=== PATIENT | female | born 1960 | race Caucasian/White ===

== ENCOUNTER 2020-02-01 18:15 | Emergency (ER) | payer OTHER, MEDICAID, SELFPAY ==
[2020-02-01 18:20] VITALS: BP 191/93; PULSE 87; RESP 14; TEMP 36.3; O2SAT 100; BMI 32.8
--- NOTE | 2020-02-01 18:25 | ED.WEAKNESS ---
HPI - Weakness General Chief complaint: Weakness Stated complaint: Not Felling Well, Been In Bed 4 Days Time Seen by Provider: 02/01/20 18:20 Source: patient and family Mode of arrival: Ambulatory Limitations: no limitations History of Present Illness HPI Narrative: 59-year-old female smoker with history of hypertension presents with a family member the chief complaint of 4 days of feeling poorly. She has had subjective fever and chills and increasing severity of cough with occasional sputum production. She denies any headache or blurred vision. She has had no runny nose, sneezing or sore throat. She denies any vomiting but has been a bit nauseated. She has not been drinking much in the way of fluids but denies any dysuria, frequency or urgency. She denies any medication change. She has not been exposed to anybody known to be positive for coronavirus. MD Complaint: generalized weakness Onset (ago): day(s) Duration: constant Location: generalized Migration: none Severity: moderate Relieving factors: none Exacerbating factors: none Related Data Previous Rx's Medication Instructions Recorded doxycycline hyclate 100 mg PO BID #20 tab 02/01/20 Allergies Allergy/AdvReac Type Severity Reaction Status Date / Time No Known Drug Allergies Allergy Verified 02/01/20 18:23 Review of Systems Constitutional Constitutional: Reports chills, Denies fatigue, Reports fever(s), Denies frequent falls, Denies lethargy and Reports weakness Eyes Eyes: Denies change in vision, Denies eye discharge, Denies irritation and Denies loss of vision ENT Ears, Nose, Mouth, and Throat: Denies change in voice, Denies dizziness, Denies neck pain, Denies sore throat and Denies throat swelling Cardiovascular Cardiovascular: Denies chest pain, Denies irregular heart rhythm, Denies lightheadedness, Denies palpitations, Denies dyspnea, Denies dyspnea on exertion and Denies orthopnea Respiratory Respiratory: Reports cough, Denies dyspnea, Denies dyspnea on exertion and Denies wheezing Gastrointestinal Gastrointestinal: Denies abdominal pain, Denies change in bowel habits, Denies diarrhea, Denies nausea and Denies vomiting Musculoskeletal Musculoskeletal: Denies neck pain and Denies numbness Integumentary/Breasts Skin/Breast: Denies pruritus, Denies erythema, Denies rash and Denies wounds Neurologic Neurologic: Denies behavioral changes, Denies confusion, Denies dizziness, Denies frequent falls, Denies loss of vision, Denies numbness and Reports weakness Psychiatric Psychiatric: Denies anxiety, Denies behavioral changes, Denies confusion, Denies depression, Denies homicidal ideation and Denies suicidal ideation Endocrine Endocrine: Denies fatigue, Denies flushing and Denies palpitations Hematologic/Lymphatic Hematologic/Lymphatic: Denies easy bruising Allergic/Immunologic Allergic/Immunologic: Denies urticaria, Denies throat swelling and Denies wheezing Patient History Social History Smoking Status: Current every day smoker Smoking Status: Current every day smoker alcohol intake frequency: 0-2 drinks per day Substance Use Type: does not use Exam Narrative Exam Narrative: GENERAL: [59] year old patient appears stated age. Well-nourished, well-developed patient, in mild distress. HEAD: Atraumatic. Normocephalic. EYES: Pupils equal round and reactive. Extraocular motions intact. No scleral icterus. No injection or drainage. ENT: Dry mucous membranes Nose without bleeding, purulent drainage. Throat without erythema, tonsillar hypertrophy or exudate. Airway patent. NECK: Trachea midline. Non tender CARDIOVASCULAR: Regular rate and rhythm without murmurs, gallops, or rubs. RESPIRATORY: Coarse breath sounds in bilateral bases, decreased breath sounds in apices, no definite wheezes, rhonchi. GASTROINTESTINAL: Abdomen soft, non-tender, nondistended. EXTREMITIES: No edema or joint tenderness. BACK: Nontender without deformity or crepitance. No flank tenderness. NEURO: AOx3. SKIN: No rash or erythema of visible areas Initial Vital Signs Initial Vital Signs: Vital Signs Temperature 97.3 F L 02/01/20 18:20 Pulse Rate 87 02/01/20 18:20 Respiratory Rate 14 02/01/20 18:20 Blood Pressure 191/93 H 02/01/20 18:20 Pulse Oximetry 100 02/01/20 18:20 Course Orders Ordered: ED Orders 02/01/20 19:18 XR chest 1V Stat 02/01/20 19:35 Blood Culture Stat 02/01/20 20:00 Complete Blood Count AUTO DIFF Stat Comprehensive Metabolic Panel Stat Procalcitonin Stat 02/01/20 20:35 COVID19 -ED/INPAT/OR/L&D Stat Urine Microscopic Stat Discontinued Medications Doxycycline Hyclate (Vibramycin) 100 mg PO NOW ONE Stop: 02/01/20 21:29 Last Admin: 02/01/20 21:38 Dose: 100 mg Documented by: NICCI Sodium Chloride (Normal Saline 0.9%) 1,000 mls @ 1,000 mls/hr IV BOLUS ONE Stop: 02/01/20 20:17 Last Infusion: 02/01/20 21:38 Dose: 0 mls/hr Documented by: Admin: 02/01/20 20:34 Dose: 1,000 mls/hr Documented by: NICCI Vital Signs Vital signs: Vital Signs - 8 hr 02/01/20 18:20 02/01/20 21:07 Temperature 97.3 F L Pulse Rate 87 91 H Respiratory Rate 14 Blood Pressure 191/93 H 158/87 H Pulse Oximetry 100 100 MDM - Weakness Lab Data Result diagrams: 02/01/20 20:00 02/01/20 20:00 Labs: Lab Results 02/01/20 02/01/20 02/01/20 Range/Units 20:00 20:00 20:00 WBC 7.0 (4.5-11.0) X10^3/uL RBC 5.55 H (4.0-5.2) X10^6/uL Hgb 15.9 (12.0-16.0) g/dL Hct 47.7 H (36-46) % MCV 85.8 (80-100) fL MCH 28.6 (26-34) PG MCHC 33.4 (30-36) % RDW 14.2 (11.6-14.8) % Plt Count 209 (150-400) X10^3/uL Neut % (Auto) 71.1 (50-75) % Lymph % (Auto) 21.9 L (25-40) % Roberts % (Auto) 5.1 (3-14) % Eos % (Auto) 1.3 L (2-4) % Baso % (Auto) 0.6 (0-2) % Neut # (Auto) 5000 (5305-0648) /uL Lymph # (Auto) 1500 (3500-0054) /uL Roberts # (Auto) 400 (0-900) /uL Eos # (Auto) 100 (0-450) /uL Baso # (Auto) 0 (0-100) /uL Sodium 139 (137-145) mmol/L Potassium 3.3 L (3.4-5.1) mmol/L Chloride 101 (98-107) mmol/L Carbon Dioxide 32 (22-32) mmol/L BUN 10 (7-17) mg/dL Creatinine 0.59 (0.52-1.04) mg/dL Estimated GFR > 60.0 (>60) mL/min BUN/Creatinine Ratio 16.9 (6-22) Glucose 126 H (80-110) mg/dL Calcium 9.3 (8.4-10.2) mg/dL Total Bilirubin 0.8 (0.2-1.3) mg/dL AST 50 H (14-36) IU/L ALT 46 H (<35) IU/L Alkaline Phosphatase 88 (38-126) U/L Total Protein 8.0 (6.3-8.2) g/dL Albumin 4.4 (3.5-5.0) g/dL Globulin 3.6 (1.7-4.1) g/dL Albumin/Globulin Ratio 1.2 (1.0-2.8) Procalcitonin 0.18 (<0.5) ng/mL Urine RBC (0-5/HPF) Urine WBC (0-5/HPF) Ur Squamous Epith Cells (0-5/HPF) Urine Bacteria (None) Ur Culture Indicated? COVID-19 PCR (Negative) 02/01/20 02/01/20 Range/Units 20:35 20:35 WBC (4.5-11.0) X10^3/uL RBC (4.0-5.2) X10^6/uL Hgb (12.0-16.0) g/dL Hct (36-46) % MCV (80-100) fL MCH (26-34) PG MCHC (30-36) % RDW (11.6-14.8) % Plt Count (150-400) X10^3/uL Neut % (Auto) (50-75) % Lymph % (Auto) (25-40) % Roberts % (Auto) (3-14) % Eos % (Auto) (2-4) % Baso % (Auto) (0-2) % Neut # (Auto) (2194-4035) /uL Lymph # (Auto) (0203-5495) /uL Roberts # (Auto) (0-900) /uL Eos # (Auto) (0-450) /uL Baso # (Auto) (0-100) /uL Sodium (137-145) mmol/L Potassium (3.4-5.1) mmol/L Chloride (98-107) mmol/L Carbon Dioxide (22-32) mmol/L BUN (7-17) mg/dL Creatinine (0.52-1.04) mg/dL Estimated GFR (>60) mL/min BUN/Creatinine Ratio (6-22) Glucose (80-110) mg/dL Calcium (8.4-10.2) mg/dL Total Bilirubin (0.2-1.3) mg/dL AST (14-36) IU/L ALT (<35) IU/L Alkaline Phosphatase (38-126) U/L Total Protein (6.3-8.2) g/dL Albumin (3.5-5.0) g/dL Globulin (1.7-4.1) g/dL Albumin/Globulin Ratio (1.0-2.8) Procalcitonin (<0.5) ng/mL Urine RBC None seen (0-5/HPF) Urine WBC 0-1/hpf (0-5/HPF) Ur Squamous Epith Cells 10-30 /hpf H (0-5/HPF) Urine Bacteria Many (>30) H (None) Ur Culture Indicated? Cult not indicated COVID-19 PCR Negative (Negative) Urine Dip Bedside Urine Glucose Negative Bedside Urine Bilirubin - Negative Bedside Urine Ketone - Negative Urine Specific Bison 1.010 Bedside Urine Occult Blood - Negative Bedside Urine pH 7.0 Bedside Urine Protein - Negative Bedside Urine Urobilinogen - Negative Bedside Urine Nitrite - Negative Bedside Urine Leukocytes + 70 Esterase Imaging Data Chest x-ray: Radiologist Impression: Chart Viewer Diagnostics DATE TYPE STATUS REF RANGE/AUTHOR Hx 02/01/20 19:18 Sandeep Huitron Cheryl L 59, F0 1960 [facility], Main ED R10 160.02cm 83.915kg BMI: 32.8kg/m? Weakness Search Chart No Data to Display No Data to Display No Data to Display Today 18:20 Kathy Thornton F [address] [address] XRay Report Signed Patient: Kathy Thornton LMR#: [id number] : 1960Acct:[id number] Age/Sex: 59 / FDate of Service: 02/01/20 Loc: ED Accession Number: [id number] Procedure: XR chest 1V Ordering Provider: Flavio Coronado D.O. PROCEDURE: XR CHEST 1V INDICATIONS: cough, fever, chills TECHNIQUE: One view of the chest was acquired. COMPARISON: None. FINDINGS: Surgical changes and devices: None. Lungs and pleura: Lungs are clear. No pleural effusions or pneumothorax. Mediastinum: Mediastinal contours appear normal. Heart size is normal. Bones and chest wall: No suspicious bony lesions. Overlying soft tissues appear unremarkable. Mild chronic fracture deformities are seen in the posterolateral right lower ribs. IMPRESSION: No acute cardiopulmonary abnormality. Dictated by: Sandeep Huitron M.D. on 02/01/2020 at 19:52 Approved by: Sandeep Huitron M.D. on 02/01/2020 at 19:53 [facility] Narrative Medical decision making narrative: Patient with subjective fever cough productive of sputum and weakness for few days feels tremendous improvement after above-stated therapies. The her chest x-ray does not show anything obvious she is given antibiotics given her story, exam, history of smoking. She has been given extensive return precautions and is had her questions answered to her apparent satisfaction. Discharge Plan Departure Patient Disposition: Home Clinical Impression: Atypical pneumonia Discharge Date/Time: 02/01/20 21:43 Instructions: DI for Atypical Pneumonia Activity Restrictions/Additional Instructions: *You have been diagnosed with [ atypical pneumonia ] *What to do: *Take medications as directed *Follow up with your primary care provider in 2-3 days, call for an appointment. Let them know you were seen in the Emergency Department and that we ask that you be seen in follow up *Return to ER if you should have any new, worsening or concerning symptoms Prescriptions: New doxycycline hyclate 100 mg tablet 100 mg PO BID Qty: 20 RF: 0 Referrals: Rock Bhatti MD [Primary Care Provider] -
--- NOTE | 2020-02-01 19:18 | DI.RAD.S_ITS ---
PROCEDURE: XR CHEST 1V INDICATIONS: cough, fever, chills TECHNIQUE: One view of the chest was acquired. COMPARISON: None. FINDINGS: Surgical changes and devices: None. Lungs and pleura: Lungs are clear. No pleural effusions or pneumothorax. Mediastinum: Mediastinal contours appear normal. Heart size is normal. Bones and chest wall: No suspicious bony lesions. Overlying soft tissues appear unremarkable. Mild chronic fracture deformities are seen in the posterolateral right lower ribs. IMPRESSION: No acute cardiopulmonary abnormality. Dictated by: Sandeep Huitron M.D. on 02/01/2020 at 19:52 Approved by: Sandeep Huitron M.D. on 02/01/2020 at 19:53
[2020-02-01 20:11] LABS: Add Manual Diff / Slide Review NO; Basophils Absolute Auto 0 /uL (0-100); Basophils Percent Auto 0.6 % (0-2); Eosinophils Absolute Auto 100 /uL (0-450); Eosinophils Percent Auto 1.3 % (2-4); Hematocrit 47.7 % (36-46); Hemoglobin 15.9 g/dL (12.0-16.0); Lymphocytes Absolute Auto 1500 /uL (1100-4500); Lymphocytes Percent Auto 21.9 % (25-40); Mean Corpuscular HGB Conc 33.4 % (30-36); Mean Corpuscular Hemoglobin 28.6 PG (26-34); Mean Corpuscular Volume 85.8 fL (80-100); Monocytes Absolute Auto 400 /uL (0-900); Monocytes Percent Auto 5.1 % (3-14); Neutrophils Absolute Auto 5000 /uL (1500-7000); Neutrophils Percent Auto 71.1 % (50-75); Platelet Count 209 X10^3/uL (150-400); Red Blood Cell Count 5.55 X10^6/uL (4.0-5.2); Red Cell Distribution Width 14.2 % (11.6-14.8)
[2020-02-01 20:27] LABS: Alanine Aminotransferase 46 IU/L (<35); Albumin 4.4 g/dL (3.5-5.0); Albumin Globulin Ratio 1.2 (1.0-2.8); Alkaline Phosphatase 88 U/L (38-126); Aspartate Aminotransferase 50 IU/L (14-36); BUN Creatinine Ratio 16.9 (6-22); Bilirubin Total 0.8 mg/dL (0.2-1.3); Blood Urea Nitrogen 10 mg/dL (7-17); Calcium 9.3 mg/dL (8.4-10.2); Carbon Dioxide 32 mmol/L (22-32); Chloride 101 mmol/L (98-107); Estimated Glomerular Filt Rate > 60.0 mL/min (>60); Globulin 3.6 g/dL (1.7-4.1); Glucose 126 mg/dL (80-110); HEMOLYSIS < 15 (0-50); Potassium 3.3 mmol/L (3.4-5.1); Sodium 139 mmol/L (137-145)
[2020-02-01] MEDS: SODIUM CHLORIDE 0.9% 1,000 ML 1000 ML IV (20:34)
[2020-02-01 20:41] LABS: Procalcitonin 0.18 ng/mL (<0.5)
[2020-02-01 20:46] LABS: RBC Urine None Seen (0-5/HPF)
[2020-02-01 21:07] VITALS: BP 158/87; PULSE 91; O2SAT 100
[2020-02-01 21:11] LABS: COVID19 -Nasal RAPID Negative (Negative)
[2020-02-01 21:24] LABS: Squamous Epithelial Cell Urine 10-30 /HPF (0-5/HPF); WBC Urine 0-1/HPF (0-5/HPF)
[2020-02-01 21:25] LABS: Bacteria Urine Many (>30); Culture Indicated Urine Cult Not Indicated
[2020-02-01] MEDS: DOXYCYCLINE HYCLATE 100 MG TABLET PO (21:38)
== END 2020-02-01 21:43 | disposition home or self-care (01) ==
PROVIDERS: Emergency Provider Emergency Medicine; PCP Family Medicine
DX: J18.9 Pneumonia, unspecified organism (principal)
CPT/HCPCS: 36415; 71045; 80053; 81003; 81015; 84145; 85025; 87040; 87635; 96360; 99284

== ENCOUNTER 2025-03-16 12:48 | Emergency (ER) | payer SELFPAY ==
[2025-03-16 12:55] VITALS: BP 144/80; PULSE 109; RESP 17; TEMP 36.6; O2SAT 98; BMI 34.3
[2025-03-16 13:47] VITALS: BP 165/93; PULSE 104; RESP 20; O2SAT 100
--- NOTE | 2025-03-16 15:00 | ED.EAR ---
HPI - Ear Problem General Chief complaint: Ear Stated complaint: Lt ear pain Time Seen by Provider: 03/16/25 14:52 Source: patient Mode of arrival: Ambulatory History of Present Illness HPI Narrative: Patient is a 64-year-old female history of hypertension, smoker presenting today with left ear pain. Reports it has been ongoing the last 3 weeks. She is nondiabetic she feels like her throat hurts now her jaw hurts hurts to touch it. She has had some scaly and eczema in both ears. Right ear does not hurt. Denies any fever or chills. It has just been ongoing for awhile. No ringing in her ears but feels like she has had worsening hearing loss. Related Data Previous Rx's ?Medication ?Instructions ?Recorded doxycycline hyclate 100 mg tablet 100 mg PO BID #20 tabs 02/01/20 amoxicillin 875 mg tablet 875 mg PO BID #20 tabs 03/16/25 Allergies Allergy/AdvReac Type Severity Reaction Status Date / Time No Known Drug Allergies Allergy Verified 03/16/25 12:55 Patient History Smoking Status: Current every day smoker alcohol intake frequency: 0-2 drinks per day Exam Initial Vital Signs Initial Vital Signs: Vital Signs Temperature 97.9 F 03/16/25 12:55 Pulse Rate 109 H 03/16/25 12:55 Respiratory Rate 17 03/16/25 12:55 Blood Pressure 144/80 H 03/16/25 12:55 Pulse Oximetry 98 03/16/25 12:55 Oxygen Delivery Method Room Air 03/16/25 12:55 GENERAL: Well-appearing, well-nourished and in no acute distress. HEENT: Head atraumatic,EOMI, pupils reactive, face symmetric, moist mucous membranes EARS: Tympanic membranes visualized, no erythema or bulging, no hemotympanum Right ear externally scaly dry skin no erythema tympanic membrane in place Left ear scaly dry skin no tenderness over mastoid no erythema tympanic membrane shows fluid behind it PHARYNX: No erythema, no tonsillar exudate, no cervical lymphadenopathy CARDIOVASCULAR: Regular rate and rhythm without murmurs, rubs or gallops. RESPIRATORY: Breath sounds equal bilaterally, no wheezes rales or rhonchi. EXTREMITIES: Normal range of motion, no clubbing or edema. Neurovascularly intact NEUROLOGICAL: Alert and oriented x4.Normal gait and speech. Cranial nerves II through XII grossly intact. SKIN: Warm, dry, no laceration, no petechiae, no rashes or lesions. Course Vital Signs Vital signs: Vital Signs - 8 hr 03/16/25 12:55 03/16/25 13:47 Temperature 97.9 F Pulse Rate 109 H 104 H Respiratory Rate 17 20 Blood Pressure 144/80 H 165/93 H Pulse Oximetry 98 100 Oxygen Delivery Method Room Air Room Air Medical Decision Making MDM Narrative Medical decision making narrative: Patient is 64-year-old female history of hypertension presenting today with ongoing left pain. She does have fluid behind her tympanic membrane there is no significant erythema scaling of the both ears externally which she says it is eczema and has been there for awhile. She is nontender over her mastoid low concern for mastoiditis. Vitals are stable she appears well and nontoxic. At this time we will go ahead and treat with an antibiotic however discussion with her if symptoms should worsen or pain behind her ear worsens then she needs to return to the ED for further evaluation. Which he understands. Discharge Plan Departure Patient Disposition: Home Clinical Impression: Otitis media Instructions: Middle Ear Infection Activity Restrictions/Additional Instructions: *You have been diagnosed with otitis media *What to do: At this time you do appear to have left-sided ear infection at least significant amount of fluid behind the ear. Please monitor. *Continue to take medications as directed Amoxicillin 875 mg twice a day for 10 days Motrin 600 mg every 6 hours for [id number] pain Tylenol 1000 mg every 6 hours if needed for [id number] pain *Follow up with your primary care provider in 2-3 days or call [phone] *Return to ER if you should have increasing pain fever bone pain or any new, worsening or concerning symptoms Prescriptions: New amoxicillin 875 mg tablet 875 mg PO BID Qty: 20 0RF No Action doxycycline hyclate 100 mg tablet 100 mg PO BID Qty: 20 0RF Referrals: Rock Bhatti MD [Primary Care Provider, Family Practice] Stand Alone Forms: Patient Portal/API
[2025-03-16] MEDS: AMOXICILLIN 250 MG CAPSULE 1000 MG PO (15:22)
[2025-03-16 15:37] VITALS: BP 136/83; PULSE 78; RESP 18; TEMP 36.9; O2SAT 98
== END 2025-03-16 15:39 | disposition home or self-care (01) ==
PROVIDERS: Emergency Provider Emergency Medicine; PCP Family Medicine
DX: H66.92 Otitis media, unspecified, left ear (principal)
CPT/HCPCS: 99283